=== PATIENT | female | born 1940 | race Caucasian/White ===

== ENCOUNTER → 2018-01-14 07:48 | Outpatient (CLI) | payer MEDICARE, OTHER, SELFPAY ==
[2018-01-14 08:17] LABS: Add Manual Diff / Slide Review NO; Basophils Percent Auto 0.8 % (0-2); Eosinophils Percent Auto 1.6 % (2-4); Hematocrit 39.3 % (36-46); Hemoglobin 13.6 g/dL (12.0-16.0); Mean Corpuscular HGB Conc 34.5 % (30-36); Mean Corpuscular Volume 92.6 fL (80-100); Monocytes Percent Auto 11.3 % (3-14); Neutrophils Absolute Auto 3800 /uL (3000-5900); Neutrophils Percent Auto 63.3 % (50-75); Platelet Count 242 X10^3/uL (150-400); Red Blood Cell Count 4.25 X10^6/uL (4.0-5.2); Red Cell Distribution Width 12.9 % (11.6-14.8); White Blood Cell Count 5.9 X10^3/uL (4.5-11.0)
[2018-01-14 08:18] LABS: Alanine Aminotransferase 26 IU/L (9-52); Albumin 4.2 g/dL (3.5-5.0); Albumin Globulin Ratio 1.3 (1.0-2.8); Alkaline Phosphatase 62 U/L (38-126); Aspartate Aminotransferase 26 IU/L (14-36); BUN Creatinine Ratio 31.3 (6-22); Bilirubin Total 0.5 mg/dL (0.2-1.3); Blood Urea Nitrogen 25 mg/dL (7-17); Calcium 9.2 mg/dL (8.4-10.2); Carbon Dioxide 30 mmol/L (22-32); Chloride 99 mmol/L (98-107); Estimated Glomerular Filt Rate > 60.0 mL/min (>60); Globulin 3.2 g/dL (1.7-4.1); Glucose 147 mg/dL (80-110); HEMOLYSIS 16 (0-50); Sodium 141 mmol/L (137-145); Total Protein 7.4 g/dL (6.3-8.2)
[2018-01-16 16:05] LABS: Cancer Antigen 27.29 22 U/mL (< 38)
== END ==
PROVIDERS: Family Provider Physician Assistant; PCP Physician Assistant; Visit Provider Nurse Practitioner Gerontology
DX: C50.912 Malignant neoplasm of unspecified site of left female breast (principal)
CPT/HCPCS: 36415; 80053; 85025; 86300

== ENCOUNTER 2018-07-08 07:10 | Day surgery (SDC) | payer MEDICARE, OTHER, SELFPAY ==
[2018-07-08 07:50] VITALS: BP 185/90; PULSE 85; RESP 14; TEMP 36.6; O2SAT 92; BMI 30.5
[2018-07-08] MEDS: PROPARACAINE 0.5% OPHTH SOL 2 DROPS EYE-OP (07:54)
[2018-07-08] MEDS: CATARACT EYE COMPOUND (10 DROPS/SYRINGE) 3 DROPS EYE-OP ×2 (07:56→08:08)
--- NOTE | 2018-07-08 09:07 | P.OP.PRE_ITS ---
Pre-operative Note Interval Note Changes: No
--- NOTE | 2018-07-08 09:07 | PM.PREOP ---
Pre-operative Note Interval Note Changes: No
--- NOTE | 2018-07-08 09:08 | P.OP_ITS ---
Operative Date/Time/Diagnoses Pre-op diagnosis: Nuclear Cataract Left eye Post-op diagnosis: same Procedure & Clinicians Surgeon: Alex Skaggs Anesthesia Type: MAC +/- and Sedation Operative Notes Procedure in detail: Patient brought to the operating suite. Tetracaine drops placed in the left eye. Patient was prepped and draped in sterile manner. Wire lid speculum was placed in the eye. Betadine drops were placed on the eye. This was irrigated. Lidocaine jelly was placed on the eye. A paracentesis port was created with a side-port blade. 0.1 mL 1% preservative free lidocaine was injected into the anterior chamber. The anterior chamber was deepened with viscoelastic. 2.6 mm keratome was used to create a temporal clear corneal incision. Cystotome and Utrata forceps were used to create continuous tear capsulorrhexis. Balanced salt solution was used to hydro dissect the nucleus. The phacoemulsification handpiece was inserted and the nucleus was removed using the stop and chop technique. The irrigation aspiration handpiece was inserted and the remaining cortex was removed. Anterior chamber was deepened with viscoelastic. An Mak ZCB00 intraocular lens with a power of 20.5 was injected into the capsular bag. Irrigation aspiration handpiece was inserted and the remaining viscoelastic was removed. Incision was hydrated with balanced salt solution and found to be leak free with pressure with Weck- Elizabeth sponges. 0.1 mL Vigamox injected anterior chamber. 0.3 mL Kenalog 10 mg was injected subconjunctivally. Lid speculum was removed. The patient left the operating room in excellent condition. Complications: none Condition: stable Disposition: same day surgery
[2018-07-08] MEDS: PHENYLEPHRINE/LIDOCAINE VIAL (OR) 0.2 ML EYE-OP (09:20)
[2018-07-08] MEDS: LIDOCAINE JELLY 2% 5 ML 1 APPLIC TOP (09:20)
[2018-07-08] MEDS: MOXIFLOXACIN OPHTH DROPS 3 ML BOTTLE 2 DROPS INJ (09:21)
[2018-07-08] MEDS: CHONDROIDTIN/SOD HYALURONATE 1.05 ML SYRINGE INTRAOCULA (09:22)
[2018-07-08] MEDS: TETRACAINE 0.5% OPHTH DROPS 15 ML 2 DROPS EYE-LEFT (09:22)
[2018-07-08] MEDS: TRIAMCINOLONE 50 MG/5 ML VIAL INJ (09:22)
[2018-07-08] MEDS: BALANCED SALT IRRIG SOLN NO.2 500 ML, EPINEPHrine 1 MG IRR (09:23)
== END 2018-07-08 09:43 | disposition home or self-care (01) ==
PROVIDERS: Family Provider Physician Assistant; PCP Physician Assistant; Visit Provider Ophthalmology
DX: H25.12 Age-related nuclear cataract, left eye (principal)
CPT/HCPCS: J0171; J2250; J3010; J3301

== ENCOUNTER → 2018-07-14 13:38 | Outpatient (CLI) | payer MEDICARE, OTHER, SELFPAY ==
[2018-07-14 15:12] LABS: Add Manual Diff / Slide Review NO; Basophils Percent Auto 0.5 % (0-2); Eosinophils Percent Auto 1.2 % (2-4); Hematocrit 41.1 % (36-46); Hemoglobin 13.8 g/dL (12.0-16.0); Lymphocytes Percent Auto 22.9 % (25-40); Mean Corpuscular HGB Conc 33.7 % (30-36); Mean Corpuscular Hemoglobin 31.8 PG (26-34); Mean Corpuscular Volume 94.4 fL (80-100); Monocytes Percent Auto 13.9 % (3-14); Neutrophils Absolute Auto 4100 /uL (3000-5900); Neutrophils Percent Auto 61.5 % (50-75); Platelet Count 278 X10^3/uL (150-400); Red Blood Cell Count 4.35 X10^6/uL (4.0-5.2); Red Cell Distribution Width 13.1 % (11.6-14.8); White Blood Cell Count 6.7 X10^3/uL (4.5-11.0)
[2018-07-14 15:17] LABS: Alanine Aminotransferase 26 IU/L (9-52); Albumin 4.5 g/dL (3.5-5.0); Albumin Globulin Ratio 1.3 (1.0-2.8); Alkaline Phosphatase 67 U/L (38-126); Aspartate Aminotransferase 26 IU/L (14-36); Bilirubin Total 0.3 mg/dL (0.2-1.3); Blood Urea Nitrogen 24 mg/dL (7-17); Calcium 9.1 mg/dL (8.4-10.2); Carbon Dioxide 34 mmol/L (22-32); Chloride 97 mmol/L (98-107); Estimated Glomerular Filt Rate > 60.0 mL/min (>60); Globulin 3.4 g/dL (1.7-4.1); Glucose 104 mg/dL (80-110); HEMOLYSIS < 15 (0-50); Potassium 4.4 mmol/L (3.4-5.1); Sodium 141 mmol/L (137-145); Total Protein 7.9 g/dL (6.3-8.2)
[2018-07-16 15:00] LABS: Cancer Antigen 27.29 23 U/mL (< 38)
== END ==
PROVIDERS: Visit Provider Nurse Practitioner Gerontology
DX: Z85.3 Personal history of malignant neoplasm of breast (principal)
CPT/HCPCS: 36415; 80053; 85025; 86300

== ENCOUNTER 2018-07-22 06:15 | Day surgery (SDC) | payer MEDICARE, OTHER, SELFPAY ==
[2018-07-22 07:09] VITALS: BMI 31.8
[2018-07-22] MEDS: PROPARACAINE 0.5% OPHTH SOL 2 DROPS EYE-OP (07:16)
[2018-07-22] MEDS: CATARACT EYE COMPOUND (10 DROPS/SYRINGE) 3 DROPS EYE-OP (07:20)
[2018-07-22 07:25] VITALS: BP 181/90; PULSE 79; RESP 18; TEMP 36.6; O2SAT 93; BMI 31.8
--- NOTE | 2018-07-22 07:41 | PM.PREOP ---
Pre-operative Note Interval Note Changes: No
--- NOTE | 2018-07-22 07:42 | P.OP.PRE_ITS ---
Pre-operative Note Interval Note Changes: No
--- NOTE | 2018-07-22 07:43 | P.OP_ITS ---
Operative Date/Time/Diagnoses Pre-op diagnosis: Nuclear cataract right eye Procedure & Clinicians Procedure: Cataract Surgery Same procedure as scheduled: Yes Surgeon: Alex Skaggs Anesthesia Type: MAC +/- and Sedation Operative Notes Procedure in detail: Patient brought to the operating suite. Tetracaine drops placed in the right eye. Patient was prepped and draped in sterile manner. Wire lid speculum was placed in the eye. Betadine drops were placed on the eye. This was irrigated. Lidocaine jelly was placed on the eye. A paracentesis port was created with a side-port blade. 0.1 mL 1% preservative free lidocaine was injected into the anterior chamber. The anterior chamber was deepened with viscoelastic. 2.6 mm keratome was used to create a temporal clear corneal incision. Cystotome and Utrata forceps were used to create continuous tear capsulorrhexis. Balanced salt solution was used to hydro dissect the nucleus. The phacoemulsification handpiece was inserted and the nucleus was removed using the stop and chop technique. The irrigation aspiration handpiece was inserted and the remaining cortex was removed. Anterior chamber was deepened with viscoelastic. An Mak ZCB00 intraocular lens with a power of 20.5 was injected into the capsular bag. Irrigation aspiration handpiece was inserted and the remaining viscoelastic was removed. Incision was hydrated with balanced salt solution and found to be leak free with pressure with Weck- Elizabeth sponges. 0.1 mL Vigamox injected anterior chamber. 0.3 mL Kenalog 10 mg was injected subconjunctivally. Lid speculum was removed. The patient left the operating room in excellent condition. Complications: none Condition: stable Disposition: same day surgery
[2018-07-22] MEDS: PHENYLEPHRINE/LIDOCAINE VIAL (OR) 0.2 ML EYE-OP (07:58)
[2018-07-22] MEDS: MOXIFLOXACIN OPHTH DROPS 3 ML BOTTLE 2 DROPS INJ (07:59)
[2018-07-22] MEDS: TRIAMCINOLONE 50 MG/5 ML VIAL INJ (07:59)
[2018-07-22] MEDS: CHONDROIDTIN/SOD HYALURONATE 1.05 ML SYRINGE INTRAOCULA (08:00)
[2018-07-22] MEDS: BALANCED SALT IRRIG SOLN NO.2 500 ML, EPINEPHrine 1 MG IRR (08:00)
[2018-07-22] MEDS: LIDOCAINE JELLY 2% 5 ML 1 APPLIC TOP (08:01)
[2018-07-22] MEDS: TETRACAINE 0.5% OPHTH DROPS 15 ML 2 DROPS EYE-RIGHT (08:02)
[2018-07-22 08:11] VITALS: BP 139/76; PULSE 80; RESP 15; TEMP 36.3; O2SAT 93
== END 2018-07-22 08:26 ==
LOC: OR 06:16
PROVIDERS: Family Provider Physician Assistant; PCP Physician Assistant; Visit Provider Ophthalmology
DX: H25.11 Age-related nuclear cataract, right eye (principal)
CPT/HCPCS: J0171; J2250; J3010; J3301

== ENCOUNTER → 2019-09-05 07:47 | Outpatient (CLI) | payer MEDICARE, OTHER, SELFPAY ==
--- NOTE | 2019-09-05 07:50 | DI.MG.S_ITS ---
BILATERAL DIGITAL SCREENING MAMMOGRAM 3D/2D WITH CAD: 09/05/2019 CLINICAL: Routine screening. Personal history of left breast cancer. Family history of breast cancer. Comparison is made to exams dated: 09/16/2017 mammogram, 10/10/2015 mammogram, and 10/08/2014 mammogram - [facility]. The tissue of both breasts is heterogeneously dense. This may lower the sensitivity of mammography. Current study was also evaluated with a Computer Aided Detection (CAD) system. There is an irregular equal density asymmetry with an indistinct margin in the left breast middle depth superior region seen on the mediolateral oblique view only. No other significant masses, calcifications, or other findings are seen in either breast. IMPRESSION: INCOMPLETE: NEEDS ADDITIONAL IMAGING EVALUATION The irregular equal density asymmetry in the left breast is indeterminate. Mediolateral and spot compression views as well as additional views with possible ultrasound are recommended. This exam was interpreted at Station ID: [id number]. NOTE: For mammograms, a report in lay terms will be sent to the patient. Approximately 15% of breast malignancies will not be visualized mammographically. In the management of a palpable breast mass, a negative mammogram must not discourage biopsy of a clinically suspicious lesion. Electronically Signed By: Priyank mtz/angeli:09/07/2019 08:14:57 copy to: PHYLICIA PEÑALOZA letter sent: Additional Imaging Needed ACR BI-RADS Category 0: Incomplete 3340F
== END ==
DX: Z12.31 Encounter for screening mammogram for malignant neoplasm of breast (principal); Z85.3 Personal history of malignant neoplasm of breast; Z80.3 Family history of malignant neoplasm of breast
CPT/HCPCS: 77063; 77067

== ENCOUNTER → 2019-09-25 08:03 | Outpatient (CLI) | payer MEDICARE, OTHER, SELFPAY ==
--- NOTE | 2019-09-25 08:05 | DI.MG.S_ITS ---
UNILATERAL LEFT DIGITAL DIAGNOSTIC MAMMOGRAM 3D/2D WITH ADDITIONAL VIEWS: 09/25/2019 CLINICAL: Additional evaluation requested from prior study. Comparison is made to exams dated: 09/05/2019 mammogram and 09/16/2017 mammogram - [facility]. The tissue of left breast is heterogeneously dense. This may lower the sensitivity of mammography. The left breast has stable post-operative findings. The benign equal density asymmetry in the left breast anterior depth superior region seen on the mediolateral oblique view only is no longer seen. This is consistent with summation artifact. No other significant masses or calcifications are seen in the breast. IMPRESSION: The previously described asymmetry disperses with additional views and is consistent with summation artifact. There is no mammographic evidence of malignancy. A 1 year screening mammogram is recommended. This exam was interpreted at Station ID: [id number]. NOTE: For mammograms, a report in lay terms will be sent to the patient. Approximately 15% of breast malignancies will not be visualized mammographically. In the management of a palpable breast mass, a negative mammogram must not discourage biopsy of a clinically suspicious lesion. Electronically Signed By: Bigg Dan M.D. at/:09/25/2019 08:42:23 copy to: PHYLICIA PEÑALOZA letter sent: Normal Exam ACR BI-RADS Category 2: Benign Finding(s) 3342F
== END ==
DX: R92.8 Other abnormal and inconclusive findings on diagnostic imaging of breast (principal); Z85.3 Personal history of malignant neoplasm of breast
CPT/HCPCS: 77065; G0279

== ENCOUNTER → 2020-05-20 12:51 | Outpatient (CLI) | payer MEDICARE, OTHER, SELFPAY ==
--- NOTE | 2020-05-20 12:55 | DI.CT.S_ITS ---
PROCEDURE: CT CHEST ABD PEL W CON INDICATIONS: Increasing bilateral lower extremity pain, history breast ca TECHNIQUE: After the administration of oral and intravenous contrast, 5 mm thick sections acquired from the lung apices to the symphysis. 5 mm coronal and sagittal reformats were performed, with additional 7 mm coronal MIP reformats through the lungs. For radiation dose reduction, the following was used: automated exposure control, adjustment of mA and/or kV according to patient size. COMPARISON: [facility], CT, CHEST ABDOMEN WITH CONTRAST, 06/02/2009, 11:34. [facility], CT, CHEST ABDOMEN PELVIS WITH CONTRAST, 02/04/2009, 9:46. FINDINGS: Image quality: Excellent. CHEST: Lungs and pleura: No acute airspace opacities. No pleural effusions or pneumothorax. Central and peripheral airways appear patent and normal in caliber. Mediastinum: Heart size is normal. No pericardial effusion. No mediastinal or hilar adenopathy by size criteria. Thoracic aorta and central pulmonary arteries are normal in size. Scattered atheromatous calcifications are present within the aortic arch. Esophagus is normal in caliber. There is a large hiatal hernia. There is marked elevation of the right hemidiaphragm, unchanged from the study dated June 02, 2009. Chest wall: Multiple surgical clips are present in the left axilla. No axillary or supraclavicular adenopathy by size criteria. Thyroid gland is unremarkable . ABDOMEN: Solid organs: Liver is normal in size and enhancement. Gallbladder is [id number] . Biliary system is non dilated. Pancreas enhances normally. Spleen is normal in size and enhancement. No adrenal nodules. Kidneys demonstrate normal size and enhancement, without hydronephrosis. Peritoneum and bowel: Bowel loops demonstrate normal wall thickness and caliber. The appendix is not visualized; however there is no discrete right lower quadrant fluid or fat stranding to suggest acute appendicitis. There are extensive sigmoid diverticula. No evidence for diverticulitis. No free fluid or air. Nodes and vessels: No retroperitoneal or mesenteric adenopathy by size criteria. Aorta and inferior vena cava are normal in size. There are scattered atheromatous calcifications throughout the aorta and iliac arteries bilaterally. Miscellaneous: No ventral hernias. PELVIS: Genitourinary: Bladder wall thickness is normal. Miscellaneous: No inguinal hernias or adenopathy. Bones: No suspicious bony lesions. No vertebral body compression fractures. IMPRESSION: 1. No acute intra-abdominal findings. The appendix is not visualized; however there are no ancillary findings to suggest acute appendicitis. 2. Extensive sigmoid colon diverticulosis. No findings to suggest acute diverticulitis. Dictated by: Alyssa Hayes M.D. on 05/20/2020 at 15:19 Approved by: Alyssa Hayes M.D. on 05/20/2020 at 15:26
--- NOTE | 2020-05-20 12:55 | DI.NM.S_ITS ---
PROCEDURE: HI BONE SCAN WHOLE BODY RADIOPHARMACEUTICAL: 22.0 mCi Tc-99m MDP IV. INDICATIONS: Increasing bilateral lower extremity pain, history breast ca TECHNIQUE: Delayed whole-body scintigrams were obtained approximately 3-4 hours after intravenous injection of radiotracer. Anterior and posterior views were acquired from vertex to feet. COMPARISON: [facility], [place], BONE SCAN WHOLE BODY, 02/09/2009, 10:32. FINDINGS: Right knee and hindfoot tracer activity which is likely arthritic. No suspicious tracer activity is seen. There is bilateral sternoclavicular tracer activity which is likely degenerative given the unchanged appearance since 2008. IMPRESSION: No suspicious tracer activity Dictated by: Xavier Cash M.D. on 05/20/2020 at 16:50 Approved by: Xavier Cash M.D. on 05/20/2020 at 16:54
== END ==
PROVIDERS: Referring Provider Internal Medicine; Visit Provider Internal Medicine
DX: M79.605 Pain in left leg (principal); M79.604 Pain in right leg; K57.30 Diverticulosis of large intestine without perforation or abscess without bleeding; Z85.3 Personal history of malignant neoplasm of breast
CPT/HCPCS: 71260; 74177; 78306; A9503; Q9967

== ENCOUNTER → 2020-05-25 13:20 | Oncology outpatient (ONC) | payer MEDICARE, OTHER, SELFPAY ==
--- NOTE | 2018-01-24 08:14 | P.PNONC_ITS ---
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 She has subsequently showed no evidence recurrence of disease. Todays exam was unremarkable, no clinical signs or symptoms of disease recurrence. Additionally CBC and CMP also unremarkable. CA 27-29 is well within normal limits at 22. Mammogram September 16, 2017 no evidence of malignancy. Return to clinic in 6 months time for provider visit, CBC, CMP, CA 27-29. 01/24/18 09:07 - Time Spent with Patient 35 mins PN -Subjective Interval history: Genesis is an 78-year-old female who is being seen in the clinic January 24, 2018 for a diagnosis of stage IV left-sided breast cancer, T2, N3, ELLIE-[address] avid mediastinal node, left supraclavicular and possible right supraclavicular node. This was ER CT negative, HER 2 +. Genesis was treated with chemotherapy with Herceptin and radiation. PET-CT was negative April 2010, CT was negative August 2010. Patient decided at that point to hold off on future CT scanning. Patient offers no new complaints on exam today. 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 She has no plans to retire. he son and ckon have been helping with the business since her last year. Annual bilateral screening mammogram was in September of this year, no evidence of malignancy with recommendation to repeat in 1 year. Overall Genesis is feeling fine. She does continue to have diffuse chronic pain , no new pain. No headaches. No change in activity tolerance. No change with appetite, weight is stable. No change with bladder or bowel habits. Past Medical History The patient's past medical history is significant for: Previously diagnosed with limited stage IV left-sided breast cancer, T2 N3 CN1 with a PET CT FDG-avid mediastinal node, left supraclavicular and possible right supraclavicular node. 2. Treated with chemotherapy, herceptin and radiation. PET CT was negative in 04/2010, and CT was negative in 08/2010. She decided to hold off on future CT scanning. 3. Finished a year of Herceptin 05/18/2010. 4. ER/CT negative. Did not receive hormone blockade. 5. CT 03/2011 showing no adenopathy in the chest or abdomen. 6. Sciatica and left shoulder and neck pain and back pain. She requires chronic pain medications. She aslo sees an accupuncture and chiropractor. Results - Imaging Additional studies: Procedures Endoscopic polypectomy of large intestine (11/26/14) Incision with removal of foreign body or device from skin and subcutaneous tissue (09/21/10) Home Medications and Allergies Home Medications Medication Instructions Recorded Confirmed Type hydrocodone-acetaminophen 1 - 2 tab PO Q6HP PRN #90 tab 01/24/18 Rx Allergies Allergy/AdvReac Type Severity Reaction Status Date / Time ibuprofen [IBUPROFEN] Allergy Mild (ALEVE) Unverified 11/20/17 12:53 SNEEZE, COUGH, ITCHY THROAT Exam - Constitutional positive no acute distress, positive obese - Routine HEENT Exam Head: Present: normocephalic Eye: Present: EOMI, PERRL, normal accommodation, conjunctivae pink. Absent: conjunctival icterus, scleral injection ENT: Present: mucous membranes moist - Routine Neck Exam Present: supple. Absent: lymphadenopathy - Routine Chest/Breast/Axilla Exam Chest wall exam standard: Absent: tenderness, mass Breast: Absent: tenderness, induration, mass Axillae: Absent: lymphadenopathy, mass, tenderness Comments: dense breast tissue - Routine Respiratory Exam Present: Clear to auscultation bilaterally. Absent: rales, rhonchi, wheezes - Routine Cardiovascular Exam Present: RRR, S1, S2. Absent: murmur, gallop, rubs, JVD - Routine Abdominal Exam Present: soft, normoactive bowel sounds. Absent: tenderness, distended, organomegaly - Routine Extremities Exam Absent: edema, calf tenderness - Routine Skin Exam Present: intact. Absent: petechiae, rash - Routine Neurological Exam Present: alert, oriented X3 - Routine Psychiatric Exam Present: normal affect
[2018-01-24 08:51] VITALS: BP 138/90; PULSE 78; RESP 18; TEMP 36.3; O2SAT 94
--- NOTE | 2018-04-10 15:47 | PC.NURSE ---
Pt is requesting a refill on her hydrocodone .
--- NOTE | 2018-07-21 08:21 | ONC.APRN.PN ---
PN -Subjective Interval history: Genesis is an 78-year-old female who is being seen in the clinic 07/21/2018 for a diagnosis of stage IV left-sided breast cancer, T2, N3, ELLIE-[address] avid mediastinal node, left supraclavicular and possible right supraclavicular node. This was ER ID negative, HER 2 +. Genesis was treated with chemotherapy with Herceptin and radiation. PET-CT was negative April 2010, CT was negative August 2010. Patient decided at that point to hold off on future CT scanning. Patient offers no new complaints on exam today. 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 She has no plans to retire. She and her son and shelly have been helping with the business since her a few years ago. She still has chronic joint pain for which she will take a vicodin at night to get comfortable so I can sleep. No new pain, no new lumps or bumps. Annual bilateral screening mammogram was in September of this year, no evidence of malignancy with recommendation to repeat in 1 year. Overall Genesis is feeling fine. She does continue to have diffuse chronic pain, no new pain. No headaches. No change in activity tolerance. No change with appetite, weight is stable. No change with bladder or bowel habits. She does not see a primary care provider. It is noted today her blood pressure is up a bit also she has gained approximately 10 lb. Past Medical History The patient's past medical history is significant for: Previously diagnosed with limited stage IV left-sided breast cancer, T2 N3 CN1 with a PET CT FDG-avid mediastinal node, left supraclavicular and possible right supraclavicular node. 2. Treated with chemotherapy, herceptin and radiation. PET CT was negative in 04/2010, and CT was negative in 08/2010. She decided to hold off on future CT scanning. 3. Finished a year of Herceptin 05/18/2010. 4. ER/ID negative. Did not receive hormone blockade. 5. CT 03/2011 showing no adenopathy in the chest or abdomen. 6. Sciatica and left shoulder and neck pain and back pain. She requires chronic pain medications. She aslo sees an accupuncture and chiropractor. Home Medications and Allergies Home Medications Medication Instructions Recorded Confirmed Type hydrocodone-acetaminophen 1 tab PO Q4-6H PRN #90 tab 07/21/18 Rx Allergies Allergy/AdvReac Type Severity Reaction Status Date / Time ibuprofen [IBUPROFEN] Allergy Mild (ALEVE) Unverified 11/20/17 12:53 SNEEZE, COUGH, ITCHY THROAT Exam - Constitutional positive no acute distress, positive obese - Routine HEENT Exam Eye: Present: conjunctivae pink. Absent: conjunctival icterus, scleral injection ENT: Present: mucous membranes moist, oropharynx clear - Routine Neck Exam Present: supple. Absent: lymphadenopathy - Routine Chest/Breast/Axilla Exam Chest wall exam standard: Absent: tenderness, mass Breast: Absent: tenderness, induration, mass Axillae: Absent: lymphadenopathy, mass, tenderness - Routine Respiratory Exam Present: Clear to auscultation bilaterally, decreased breath sounds. Absent: accessory muscle use, prolonged expiratory phase, rales, respiratory distress, rhonchi, wheezes, distant breath sounds - Routine Cardiovascular Exam Present: RRR, S1, S2. Absent: murmur, gallop, rubs, JVD - Routine Abdominal Exam Present: soft, normoactive bowel sounds. Absent: tenderness, distended, rebound, organomegaly, mass Comments: obese abdomen - Routine Extremities Exam Absent: edema, calf tenderness - Routine Skin Exam Present: intact, normal turgor. Absent: rash - Routine Neurological Exam Present: alert, oriented X3 - Routine Psychiatric Exam Present: normal affect Results - Imaging Additional studies: Procedures Endoscopic polypectomy of large intestine (11/26/14) Assessment and Plan (1) History of malignant neoplasm of breast Onset Date: 03/21/11 Current visit: No Status: None Genesis is an 78-year-old female who is being seen in the clinic 07/21/2018 for a diagnosis of stage IV left-sided breast cancer, T2, N3, ELLIE-[address] avid mediastinal node, left supraclavicular and possible right supraclavicular node. This was ER ID negative, HER 2 +. Genesis was treated with chemotherapy with Herceptin and radiation. PET-CT was negative April 2010, CT was negative August 2010. Patient decided at that point to hold off on future CT scanning. She will be due for her annual bilateral screening mammogram in September of 2018. Reassuringly on exam today there are no clinical signs or symptoms of disease recurrence/progression. Additionally, CBC, CMP, CA-27-29 remain unremarkable. It is noted the patient's blood pressure is a bit elevated today additionally she has gained about 10 lb. She does not have a primary care provider, discussed with the patient checking her blood pressure at home keeping a record of it and establishing with primary care. I am happy to refill this patient's prescription for Vicodin 5/325. She does have diffuse chronic pain. She remains quite active. She reports significant relief with 1 Vicodin. Return to clinic in 6 months time for provider visit CBC CMP CA 27-29. - Time Spent with Patient 25 mins
[2018-07-21 08:44] VITALS: BP 154/84; PULSE 76; RESP 18; TEMP 36.4; O2SAT 95
--- NOTE | 2018-09-11 10:14 | ONC.SCHED ---
Pt's sister in law came in to pickling grader prescription. There was nothing on the envelope stating she could pick it up so I asked for her ID and called the patient to confirm this was ok. Genesis gave her permission.
--- NOTE | 2018-12-29 10:24 | PC.NURSE ---
Phoned pt to let her know her hard copy of RX is at front desk clerk in sealed envelope with her name on it and ready to be picked up, pt verbalized understanding.
[2019-01-12 09:05] LABS: Add Manual Diff / Slide Review NO; Basophils Absolute Auto 0 /uL (0-100); Basophils Percent Auto 0.7 % (0-2); Eosinophils Absolute Auto 100 /uL (0-450); Eosinophils Percent Auto 1.9 % (2-4); Hematocrit 41.8 % (36-46); Hemoglobin 14.1 g/dL (12.0-16.0); Lymphocytes Absolute Auto 1900 /uL (1100-4500); Lymphocytes Percent Auto 26.1 % (25-40); Mean Corpuscular HGB Conc 33.7 % (30-36); Mean Corpuscular Hemoglobin 31.2 PG (26-34); Mean Corpuscular Volume 92.6 fL (80-100); Monocytes Absolute Auto 900 /uL (0-900); Monocytes Percent Auto 12.3 % (3-14); Neutrophils Absolute Auto 4200 /uL (1500-7000); Platelet Count 259 X10^3/uL (150-400); Red Blood Cell Count 4.51 X10^6/uL (4.0-5.2); Red Cell Distribution Width 14.5 % (11.6-14.8); White Blood Cell Count 7.2 X10^3/uL (4.5-11.0)
[2019-01-12 09:39] LABS: Alanine Aminotransferase 15 IU/L (9-52); Albumin 4.4 g/dL (3.5-5.0); Albumin Globulin Ratio 1.3 (1.0-2.8); Alkaline Phosphatase 70 U/L (38-126); Aspartate Aminotransferase 25 IU/L (14-36); BUN Creatinine Ratio 21.1 (6-22); Bilirubin Total 0.6 mg/dL (0.2-1.3); Blood Urea Nitrogen 19 mg/dL (7-17); Calcium 9.5 mg/dL (8.4-10.2); Carbon Dioxide 32 mmol/L (22-32); Chloride 97 mmol/L (98-107); Estimated Glomerular Filt Rate > 60.0 mL/min (>60); Globulin 3.5 g/dL (1.7-4.1); Glucose 107 mg/dL (80-110); HEMOLYSIS < 15 (0-50); Potassium 4.4 mmol/L (3.4-5.1); Sodium 139 mmol/L (137-145); Total Protein 7.9 g/dL (6.3-8.2)
[2019-01-15 10:11] LABS: Cancer Antigen 27.29 23 U/mL (< 38)
[2019-01-19 11:36] VITALS: BP 142/78; PULSE 71; RESP 18; TEMP 36.8; O2SAT 96
--- NOTE | 2019-01-19 11:44 | ONC.PN ---
PN -Subjective Interval history: Diagnosis: Breast cancer, T2 N3 M1, ERPR negative, her 2 positive Previous treatment: 1. Surgical resection in 2008 2. Adjuvant chemotherapy along with Herceptin for a year finishing in May 2010. PET-CT was negative at the end of treatment. 3. Radiation therapy Interval history: Genesis is an 78-year-old female who is being seen in the clinic 07/21/2018 for a diagnosis of stage IV left-sided breast cancer, T2, N3, M-[address] avid mediastinal node, left supraclavicular and possible right supraclavicular node. This was ER DE negative, HER 2 +. Genesis was treated with chemotherapy with Herceptin and radiation. PET-CT was negative April 2010, CT was negative August 2010. Patient decided at that point to hold off on future CT scanning. Since her last visit here, she has been feeling generally well and has no specific complaints. She has not noticed any changes in the breast. No adenopathy. No shortness of breath or cough. No GI complaints. She does have a diffuse pain that has been present since the time of her chemotherapy. She uses occasional Vicodin, 1 or 2 tablets daily. She is not taking any other medications. She continues to work full-time. She denies any other changes in her health. Past Medical History The patient's past medical history is significant for: Previously diagnosed with limited stage IV left-sided breast cancer, T2 N3 CN1 with a PET CT FDG-avid mediastinal node, left supraclavicular and possible right supraclavicular node. 2. Treated with chemotherapy, herceptin and radiation. PET CT was negative in 04/2010, and CT was negative in 08/2010. She decided to hold off on future CT scanning. 3. Finished a year of Herceptin 05/18/2010. 4. ER/DE negative. Did not receive hormone blockade. 5. CT 03/2011 showing no adenopathy in the chest or abdomen. 6. Sciatica and left shoulder and neck pain and back pain. She requires chronic pain medications. She aslo sees an accupuncture and chiropractor. Her only medication is hydrocodone. Home Medications and Allergies Home Medications Medication Instructions Recorded Confirmed Type hydrocodone-acetaminophen 1 tab PO Q4-6H PRN #90 tab 01/19/19 Rx Allergies Allergy/AdvReac Type Severity Reaction Status Date / Time ibuprofen [IBUPROFEN] Allergy Mild (ALEVE) Unverified 11/20/17 12:53 SNEEZE, COUGH, ITCHY THROAT Exam Vital signs: Vital Signs Temp Pulse Resp BP Pulse Ox 01/19/19 11:36 98.2 F 71 18 142/78 H 96 Intake and Output 01/18/19 01/19/19 01/19/19 23:59 07:59 15:59 Other: Weight 96.5 kg 94.9 kg Patient Weight 01/19/19 23:59 Weight 94.9 kg - Constitutional positive no acute distress, positive obese - Routine HEENT Exam Head: Present: normocephalic, atraumatic Eye: Present: EOMI, PERRL. Absent: conjunctival icterus, scleral injection ENT: Present: mucous membranes moist, oropharynx clear - Routine Neck Exam Present: supple. Absent: lymphadenopathy, thyromegaly - Routine Chest/Breast/Axilla Exam Chest wall exam standard: Absent: tenderness Axillae: Absent: lymphadenopathy Comments: She has a well-healed lumpectomy incision on the lower left breast. There is no nodularity or masses. No masses in the right breast. No axillary adenopathy on either side. - Routine Respiratory Exam Present: Clear to auscultation bilaterally. Absent: rales, wheezes - Routine Cardiovascular Exam Present: RRR, S1, S2. Absent: murmur - Routine Abdominal Exam Present: soft, normoactive bowel sounds. Absent: tenderness, organomegaly, mass - Routine Extremities Exam Absent: cyanosis, clubbing, edema - Routine Back/Spine Exam Back/Spine: Absent: paraspinal tenderness, vertebral tenderness - Routine Skin Exam Present: intact. Absent: petechiae, rash - Routine Neurological Exam Present: alert, oriented X3 - Routine Psychiatric Exam Present: normal affect, normal thought process Results - Labs Laboratory Last Values WBC 7.2 X10^3/uL (4.5-11.0) 01/12/19 06:54 RBC 4.51 X10^6/uL (4.0-5.2) 01/12/19 06:54 Hgb 14.1 g/dL (12.0-16.0) 01/12/19 06:54 Hct 41.8 % (36-46) 01/12/19 06:54 MCV 92.6 fL (80-100) 01/12/19 06:54 MCH 31.2 PG (26-34) 01/12/19 06:54 MCHC 33.7 % (30-36) 01/12/19 06:54 RDW 14.5 % (11.6-14.8) 01/12/19 06:54 Plt Count 259 X10^3/uL (150-400) 01/12/19 06:54 Neut % (Auto) 59.0 % (50-75) 01/12/19 06:54 Lymph % (Auto) 26.1 % (25-40) 01/12/19 06:54 [place] % (Auto) 12.3 % (3-14) 01/12/19 06:54 Eos % (Auto) 1.9 % (2-4) L 01/12/19 06:54 Baso % (Auto) 0.7 % (0-2) 01/12/19 06:54 Neut # (Auto) 4200 /uL (0112-7109) 01/12/19 06:54 Lymph # (Auto) 1900 /uL (1512-0322) 01/12/19 06:54 [place] # (Auto) 900 /uL (0-900) 01/12/19 06:54 Eos # (Auto) 100 /uL (0-450) 01/12/19 06:54 Baso # (Auto) 0 /uL (0-100) 01/12/19 06:54 Sodium 139 mmol/L (137-145) 01/12/19 06:54 Potassium 4.4 mmol/L (3.4-5.1) 01/12/19 06:54 Chloride 97 mmol/L (98-107) L 01/12/19 06:54 Carbon Dioxide 32 mmol/L (22-32) 01/12/19 06:54 BUN 19 mg/dL (7-17) H 01/12/19 06:54 Creatinine 0.90 mg/dL (0.52-1.04) 01/12/19 06:54 Estimated GFR > 60.0 mL/min (>60) 01/12/19 06:54 BUN/Creatinine Ratio 21.1 (6-22) 01/12/19 06:54 Glucose 107 mg/dL (80-110) 01/12/19 06:54 Calcium 9.5 mg/dL (8.4-10.2) 01/12/19 06:54 Total Bilirubin 0.6 mg/dL (0.2-1.3) 01/12/19 06:54 AST 25 IU/L (14-36) 01/12/19 06:54 ALT 15 IU/L (9-52) 01/12/19 06:54 Alkaline Phosphatase 70 U/L (38-126) 01/12/19 06:54 Total Protein 7.9 g/dL (6.3-8.2) 01/12/19 06:54 Albumin 4.4 g/dL (3.5-5.0) 01/12/19 06:54 Globulin 3.5 g/dL (1.7-4.1) 01/12/19 06:54 Albumin/Globulin Ratio 1.3 (1.0-2.8) 01/12/19 06:54 CA 27-29 23 U/mL (< 38) 01/12/19 06:54 - Imaging Additional studies: Procedures Endoscopic polypectomy of large intestine (11/26/14) Assessment and Plan (1) History of malignant neoplasm of breast Onset Date: 03/21/11 Current visit: No Status: Chronic Genesis is an 78-year-old female who is now about 10 years out from locally advanced her 2 positive breast cancer. She has no evidence of disease and is doing well. She will return to clinic in about 6 months for follow-up. If she is still doing well at that time, we will switch to annual follow-up. She will be due for a mammogram then.
[2019-07-21 11:23] VITALS: BP 167/79; PULSE 83; RESP 16; TEMP 36.7; O2SAT 89
--- NOTE | 2019-07-21 11:37 | P.PNONC_ITS ---
PN -Subjective Interval history: Diagnosis: Breast cancer, T2 N3 M1, ERPR negative, her 2 positive Previous treatment: 1. Surgical resection in 2008 2. Adjuvant chemotherapy along with Herceptin for a year finishing in May 2010. PET-CT was negative at the end of treatment. 3. Radiation therapy Interval history: Genesis is an 79-year-old female who is being seen in the clinic 07/21/2018 for a diagnosis of stage IV left-sided breast cancer, T2, N3, M-[address] avid mediastinal node, left supraclavicular and possible right supraclavicular node. This was ER [place] negative, HER 2 +. Genesis was treated with chemotherapy with Herceptin and radiation. PET-CT was negative April 2010, CT was negative August 2010. Patient decided at that point to hold off on future CT scanning. Since her last visit here, she has been feeling generally well and has no specific complaints. She has not noticed any changes in the breast. No adenopathy. No shortness of breath or cough. No GI complaints. She does have a diffuse pain that has been present since the time of her chemotherapy. She uses occasional Vicodin, 1 or 2 tablets daily. She is not taking any other medications. She continues to work full-time. She denies any other changes in her health. Past Medical History The patient's past medical history is significant for: Previously diagnosed with limited stage IV left-sided breast cancer, T2 N3 CN1 with a PET CT FDG-avid mediastinal node, left supraclavicular and possible right supraclavicular node. 2. Treated with chemotherapy, herceptin and radiation. PET CT was negative in 04/2010, and CT was negative in 08/2010. She decided to hold off on future CT scanning. 3. Finished a year of Herceptin 05/18/2010. 4. ER/[place] negative. Did not receive hormone blockade. 5. CT 03/2011 showing no adenopathy in the chest or abdomen. 6. Sciatica and left shoulder and neck pain and back pain. She requires chronic pain medications. She aslo sees an accupuncture and chiropractor. Her only medication is hydrocodone. Home Medications and Allergies Home Medications Medication Instructions Recorded Confirmed Type hydrocodone-acetaminophen 1 tab PO Q4-6H PRN #90 tab 07/21/19 Rx Allergies Allergy/AdvReac Type Severity Reaction Status Date / Time ibuprofen [IBUPROFEN] Allergy Mild (ALEVE) Unverified 11/20/17 12:53 SNEEZE, COUGH, ITCHY THROAT Exam Vital signs: Vital Signs Temp Pulse Resp BP Pulse Ox 07/21/19 11:23 98.1 F 83 16 167/79 H 89 L Intake and Output 07/20/19 07/21/19 07/21/19 23:59 07:59 15:59 Other: Weight 94.5 kg Patient Weight 07/21/19 23:59 Weight 94.5 kg - Constitutional positive no acute distress, positive obese - Routine HEENT Exam Head: Present: normocephalic, atraumatic Eye: Present: EOMI, PERRL. Absent: conjunctival icterus, scleral injection ENT: Present: mucous membranes moist, oropharynx clear - Routine Neck Exam Present: supple. Absent: lymphadenopathy, thyromegaly - Routine Chest/Breast/Axilla Exam Comments: Breast exam shows a well-healed incision on the inferior left breast. There is no nodularity or masses. No masses in the right breast. No axillary adenopathy on either side. - Routine Respiratory Exam Present: Clear to auscultation bilaterally. Absent: rales, wheezes - Routine Cardiovascular Exam Present: RRR, S1, S2. Absent: murmur - Routine Abdominal Exam Present: soft, normoactive bowel sounds. Absent: tenderness, organomegaly, mass - Routine Extremities Exam Absent: cyanosis, clubbing, edema - Routine Back/Spine Exam Back/Spine: Absent: vertebral tenderness - Routine Skin Exam Present: intact. Absent: petechiae, rash - Routine Neurological Exam Present: alert, oriented X3 - Routine Psychiatric Exam Present: normal affect, normal thought process Results - Labs Laboratory Last Values WBC 7.2 X10^3/uL (4.5-11.0) 01/12/19 06:54 RBC 4.51 X10^6/uL (4.0-5.2) 01/12/19 06:54 Hgb 14.1 g/dL (12.0-16.0) 01/12/19 06:54 Hct 41.8 % (36-46) 01/12/19 06:54 MCV 92.6 fL (80-100) 01/12/19 06:54 MCH 31.2 PG (26-34) 01/12/19 06:54 MCHC 33.7 % (30-36) 01/12/19 06:54 RDW 14.5 % (11.6-14.8) 01/12/19 06:54 Plt Count 259 X10^3/uL (150-400) 01/12/19 06:54 Neut % (Auto) 59.0 % (50-75) 01/12/19 06:54 Lymph % (Auto) 26.1 % (25-40) 01/12/19 06:54 [place] % (Auto) 12.3 % (3-14) 01/12/19 06:54 Eos % (Auto) 1.9 % (2-4) L 01/12/19 06:54 Baso % (Auto) 0.7 % (0-2) 01/12/19 06:54 Neut # (Auto) 4200 /uL (5321-3419) 01/12/19 06:54 Lymph # (Auto) 1900 /uL (4854-4384) 01/12/19 06:54 [place] # (Auto) 900 /uL (0-900) 01/12/19 06:54 Eos # (Auto) 100 /uL (0-450) 01/12/19 06:54 Baso # (Auto) 0 /uL (0-100) 01/12/19 06:54 Sodium 139 mmol/L (137-145) 01/12/19 06:54 Potassium 4.4 mmol/L (3.4-5.1) 01/12/19 06:54 Chloride 97 mmol/L (98-107) L 01/12/19 06:54 Carbon Dioxide 32 mmol/L (22-32) 01/12/19 06:54 BUN 19 mg/dL (7-17) H 01/12/19 06:54 Creatinine 0.90 mg/dL (0.52-1.04) 01/12/19 06:54 Estimated GFR > 60.0 mL/min (>60) 01/12/19 06:54 BUN/Creatinine Ratio 21.1 (6-22) 01/12/19 06:54 Glucose 107 mg/dL (80-110) 01/12/19 06:54 Calcium 9.5 mg/dL (8.4-10.2) 01/12/19 06:54 Total Bilirubin 0.6 mg/dL (0.2-1.3) 01/12/19 06:54 AST 25 IU/L (14-36) 01/12/19 06:54 ALT 15 IU/L (9-52) 01/12/19 06:54 Alkaline Phosphatase 70 U/L (38-126) 01/12/19 06:54 Total Protein 7.9 g/dL (6.3-8.2) 01/12/19 06:54 Albumin 4.4 g/dL (3.5-5.0) 01/12/19 06:54 Globulin 3.5 g/dL (1.7-4.1) 01/12/19 06:54 Albumin/Globulin Ratio 1.3 (1.0-2.8) 01/12/19 06:54 CA 27-29 23 U/mL (< 38) 01/12/19 06:54 - Imaging Additional studies: Procedures Endoscopic polypectomy of large intestine (11/26/14) Assessment and Plan (1) History of malignant neoplasm of breast Onset Date: 03/21/11 Current visit: No Status: Chronic Genesis is an 78-year-old female who is now about 10 years out from her 2 positive breast cancer. She has no evidence of disease and is doing well. She will return to clinic in about 1 year for follow-up. She will get her mammogram later this week. She will be due for another 1 in a year.
--- NOTE | 2019-11-26 13:58 | PC.NURSE ---
VICODIN RX READY FOR PATIENT TO CONCESSION CASHIER - SHE WAS INFORMED PER TELEPHONE AND VOICED UNDERSTANDING.
[2020-05-18 08:34] VITALS: BP 136/77; PULSE 80; RESP 20; TEMP 36.2; O2SAT 95
--- NOTE | 2020-05-18 09:13 | ONC.PN ---
PN -Subjective Interval history: Diagnosis: Breast cancer, T2 N3 M1, ERPR negative, her 2 positive Ms. britton presents today for follow-up of breast cancer. She is now 80 years old. In 2008 she had resection of a T2 N3a M1 hormone receptor negative HER2 positive left breast cancer. PET scan was positive in mediastinal, left supraclavicular and possibly right supraclavicular lymph nodes. She was treated with ACTH and completed a year of Herceptin in May of 2010. She had post chemotherapy radiation. Subsequent imaging studies have been negative. She was last in to see Dr. Krishna in July 2019 at. At that time she was complaining of diffuse pain since the chemotherapy but no significant changes. She had mammography in August that showed a questionable abnormality that was not confirmed on additional left breast images on September 25. She comes today for a follow-up visit. She notes increasingly severe pain in her lower extremities. She describes pain in the backs of both thighs and occasionally into her calves. It does not really go into her back much. It is present at rest and especially when she gets up from sitting or riding in the car 1st gets up in the morning. It has some better when she gets up and walks around and she states that she feels generally stiff when she 1st gets up. However the pain does not go completely away at any time it has. It is constant. It wakes her up at night. It has been getting steadily worse over the last 5-6 months and is now reached a point where she has a lot of trouble getting around as a consequence of the pain. There is no associated numbness, tingling, weakness, balance issues, headaches, or visual complaints. She has not had any issues with coordination. She denies other pain, bleeding, fever, chills, nausea, vomiting, cough or shortness of breath. All other systems are negative. Past medical history 1. She has had breast cancer surgery and bilateral cataract extractions with no other operation 2. Her daughter had colon cancer. Her of colon cancer. There is no other family history of malignancy. 3. 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 She lives alone. She is not a smoker or drinker. She is accompanied today by a good friend 4. She denies high blood pressure, diabetes, rheumatic fever, tuberculosis, heart attacks, strokes, stomach ulcers or pneumonia. She has had no other kind of cancer 5. Ibuprofen is listed as allergy but she denies that on questioning. 6. Her only current medication is hydrocodone which she takes on a as needed basis - Patient Self-Reported Symptoms SR Musculoskeletal issues: Difficulty walking, Bone pain Home Medications and Allergies Home Medications Medication Instructions Recorded Confirmed Type hydrocodone-acetaminophen 1 tab PO Q4-6H PRN #90 tab 05/11/20 Rx Allergies Allergy/AdvReac Type Severity Reaction Status Date / Time ibuprofen [IBUPROFEN] Allergy Mild (ALEVE) Unverified 11/20/17 12:53 SNEEZE, COUGH, ITCHY THROAT Exam Vital signs: Vital Signs Temp Pulse Resp BP Pulse Ox 05/18/20 08:34 97.2 F L 80 20 136/77 95 Intake and Output 05/17/20 05/18/20 05/18/20 23:59 07:59 15:59 Other: Weight 91.2 kg Patient Weight 05/18/20 23:59 Weight 91.2 kg Narrative: She was awake, alert and oriented x3. She was in no acute distress when I 1st walked into the room. She had significant pain in the areas described above when she stood up to move over to the examination table. There was a 1 cm right supraclavicular lymph node noted laterally. There was no other lymphadenopathy in the cervical, supraclavicular or axillary regions. There were no palpable breast masses on either side and no evidence of local recurrence on the left. Lungs were clear without wheezes or rales. Breath sounds were equal throughout both lung [place]. Heart showed a regular rate and rhythm without murmur, gallop or rub. The abdomen is soft and nontender without organomegaly or masses. Paraspinous pinprick examination showed increased sensation in the region of the mid lumbar spine with increased sensitivity to the [place]. There was no evidence of peripheral neuropathy on pinprick exam. She had a an antalgic gait and pain with resisting pressure but did not appear to have any localized weakness. Reflexes were 1 trace to 1+ bilaterally and symmetric. Results - Labs Laboratory Last Values WBC 7.2 X10^3/uL (4.5-11.0) 01/12/19 06:54 RBC 4.51 X10^6/uL (4.0-5.2) 01/12/19 06:54 Hgb 14.1 g/dL (12.0-16.0) 01/12/19 06:54 Hct 41.8 % (36-46) 01/12/19 06:54 MCV 92.6 fL (80-100) 01/12/19 06:54 MCH 31.2 PG (26-34) 01/12/19 06:54 MCHC 33.7 % (30-36) 01/12/19 06:54 RDW 14.5 % (11.6-14.8) 01/12/19 06:54 Plt Count 259 X10^3/uL (150-400) 01/12/19 06:54 Neut % (Auto) 59.0 % (50-75) 01/12/19 06:54 Lymph % (Auto) 26.1 % (25-40) 01/12/19 06:54 [place] % (Auto) 12.3 % (3-14) 01/12/19 06:54 Eos % (Auto) 1.9 % (2-4) L 01/12/19 06:54 Baso % (Auto) 0.7 % (0-2) 01/12/19 06:54 Neut # (Auto) 4200 /uL (6862-2171) 01/12/19 06:54 Lymph # (Auto) 1900 /uL (9949-2576) 01/12/19 06:54 [place] # (Auto) 900 /uL (0-900) 01/12/19 06:54 Eos # (Auto) 100 /uL (0-450) 01/12/19 06:54 Baso # (Auto) 0 /uL (0-100) 01/12/19 06:54 Sodium 139 mmol/L (137-145) 01/12/19 06:54 Potassium 4.4 mmol/L (3.4-5.1) 01/12/19 06:54 Chloride 97 mmol/L (98-107) L 01/12/19 06:54 Carbon Dioxide 32 mmol/L (22-32) 01/12/19 06:54 BUN 19 mg/dL (7-17) H 01/12/19 06:54 Creatinine 0.90 mg/dL (0.52-1.04) 01/12/19 06:54 Estimated GFR > 60.0 mL/min (>60) 01/12/19 06:54 BUN/Creatinine Ratio 21.1 (6-22) 01/12/19 06:54 Glucose 107 mg/dL (80-110) 01/12/19 06:54 Calcium 9.5 mg/dL (8.4-10.2) 01/12/19 06:54 Total Bilirubin 0.6 mg/dL (0.2-1.3) 01/12/19 06:54 AST 25 IU/L (14-36) 01/12/19 06:54 ALT 15 IU/L (9-52) 01/12/19 06:54 Alkaline Phosphatase 70 U/L (38-126) 01/12/19 06:54 Total Protein 7.9 g/dL (6.3-8.2) 01/12/19 06:54 Albumin 4.4 g/dL (3.5-5.0) 01/12/19 06:54 Globulin 3.5 g/dL (1.7-4.1) 01/12/19 06:54 Albumin/Globulin Ratio 1.3 (1.0-2.8) 01/12/19 06:54 CA 27-29 23 U/mL (< 38) 01/12/19 06:54 - Imaging Additional studies: Procedures Endoscopic polypectomy of large intestine (11/26/14) Incision with removal of foreign body or device from skin and subcutaneous tissue (09/21/10) Assessment and Plan (1) History of malignant neoplasm of breast Onset Date: 03/21/11 Status: Chronic Ms. Liang has a history of HER2 positive hormone receptor negative breast cancer in 2008. There was lymphadenopathy suggesting metastatic disease at that time but she has done very well. She now has a significant and worsening pain syndrome. The fact that things are better when she is up and moving around suggest the presence of an inflammatory component to this. There is an increased sensation to pinprick in the mid lumbar spine bilaterally on paraspinous pinprick examination but no other obvious neurologic findings. She has a palpable right supraclavicular lymph node. I explained that it would be appropriate to evaluate her situation with a blood count, chemistry panel, bone scan and CT scan of the chest, abdomen and pelvis. She will have the labs done today and will get the imaging studies done in the next few days. Will plan to see her back after that is been completed and further plans will be made at that time. In the interim, she will continue with her hydrocodone. She was advised that she could use ibuprofen 200 mg every 4-6 hours as needed in addition to or in between her hydrocodone doses. Despite the fact ibuprofen is listed as an allergy in her chart, she was specifically questioned about this and denies it. She was advised to take ibuprofen with food. I personally spent 28 minutes in today's [id number] visit with greater than 50% of the time spent in counseling regarding the issues outlined above. Impression: 1. Resection of T2 N3 M 1 hormone receptor negative HER2 positive left breast cancer in 2008 with evidence of metastatic disease in mediastinal, left side supraclavicular and possibly right supraclavicular lymph nodes at that time. 2. ACTH completing 1 year of Herceptin in May of 2010 3. Post chemotherapy radiation 4. Subsequent imaging has been unrevealing 5. Severe and increasing pain syndrome with with findings suggestive of an inflammatory component Recommendations: 1. CBC and CMP today 2. CT scan of the chest, abdomen and pelvis 3. Bone scan 4. Ibuprofen and hydrocodone in the interim for pain relief 5. Return after tests to review results and formulate additional plans
[2020-05-18 10:40] LABS: Add Manual Diff / Slide Review NO; Basophils Absolute Auto 0 /uL (0-100); Basophils Percent Auto 0.4 % (0-2); Eosinophils Absolute Auto 100 /uL (0-450); Eosinophils Percent Auto 1.2 % (2-4); Hematocrit 39.9 % (36-46); Hemoglobin 13.8 g/dL (12.0-16.0); Lymphocytes Absolute Auto 1400 /uL (1100-4500); Lymphocytes Percent Auto 18.5 % (25-40); Mean Corpuscular HGB Conc 34.7 % (30-36); Mean Corpuscular Hemoglobin 32.8 PG (26-34); Mean Corpuscular Volume 94.6 fL (80-100); Monocytes Absolute Auto 900 /uL (0-900); Monocytes Percent Auto 11.4 % (3-14); Neutrophils Absolute Auto 5300 /uL (1500-7000); Neutrophils Percent Auto 68.5 % (50-75); Platelet Count 239 X10^3/uL (150-400); Red Blood Cell Count 4.21 X10^6/uL (4.0-5.2); Red Cell Distribution Width 13.6 % (11.6-14.8); White Blood Cell Count 7.7 X10^3/uL (4.5-11.0)
[2020-05-18 11:21] LABS: Alanine Aminotransferase 21 IU/L (<35); Albumin 4.4 g/dL (3.5-5.0); Albumin Globulin Ratio 1.4 (1.0-2.8); Alkaline Phosphatase 63 U/L (38-126); Aspartate Aminotransferase 28 IU/L (14-36); BUN Creatinine Ratio 36.1 (6-22); Bilirubin Total 0.4 mg/dL (0.2-1.3); Blood Urea Nitrogen 26 mg/dL (7-17); Calcium 9.3 mg/dL (8.4-10.2); Carbon Dioxide 31 mmol/L (22-32); Chloride 101 mmol/L (98-107); Estimated Glomerular Filt Rate > 60.0 mL/min (>60); Globulin 3.1 g/dL (1.7-4.1); Glucose 129 mg/dL (80-110); HEMOLYSIS 24 (0-50); Potassium 4.7 mmol/L (3.4-5.1); Sodium 138 mmol/L (137-145); Total Protein 7.5 g/dL (6.3-8.2)
[2020-05-25 13:47] VITALS: BP 137/85; PULSE 82; RESP 18; TEMP 36.4; O2SAT 98
--- NOTE | 2020-05-25 14:49 | ONC.PN ---
PN -Subjective Interval history: Diagnosis: Breast cancer, T2 N3 M1, ERPR negative, her 2 positive Ms. britton presents today for follow-up of breast cancer. She is now 80 years old. In 2008 she had resection of a T2 N3a M1 hormone receptor negative HER2 positive left breast cancer. PET scan was positive in mediastinal, left supraclavicular and possibly right supraclavicular lymph nodes. She was treated with ACTH and completed a year of Herceptin in May of 2010. She had post chemotherapy radiation. Subsequent imaging studies have been negative. She was last in to see Dr. Krishna in July 2019 at. At that time she was complaining of diffuse pain since the chemotherapy but no significant changes. She had mammography in August that showed a questionable abnormality that was not confirmed on additional left breast images on September 25. She notes increasingly severe pain in her lower extremities. She describes pain in the backs of both thighs and occasionally into her calves. It does not really go into her back much. It is present at rest and especially when she gets up from sitting or riding in the car 1st gets up in the morning. It has some better when she gets up and walks around and she states that she feels generally stiff when she 1st gets up. However the pain does not go completely away at any time it has. It is constant. It wakes her up at night. It has been getting steadily worse over the last 5-6 months and is now reached a point where she has a lot of trouble getting around as a consequence of the pain. There is no associated numbness, tingling, weakness, balance issues, headaches, or visual complaints. She has not had any issues with coordination. She denies other pain, bleeding, fever, chills, nausea, vomiting, cough or shortness of breath. All other systems are negative. She had testing done and comes in today to review results. Past medical history 1. She has had breast cancer surgery and bilateral cataract extractions with no other operation 2. Her daughter had colon cancer. Her of colon cancer. There is no other family history of malignancy. 3. 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 She lives alone. She is not a smoker or drinker. She is accompanied today by a good friend 4. She denies high blood pressure, diabetes, rheumatic fever, tuberculosis, heart attacks, strokes, stomach ulcers or pneumonia. She has had no other kind of cancer 5. Ibuprofen is listed as allergy but she denies that on questioning. 6. Her only current medication is hydrocodone which she takes on a as needed basis - Patient Self-Reported Symptoms SR Musculoskeletal issues: Back or neck pain, Difficulty walking Home Medications and Allergies Home Medications Medication Instructions Recorded Confirmed Type hydrocodone-acetaminophen 1 tab PO Q4-6H PRN #90 tab 05/11/20 Rx Allergies Allergy/AdvReac Type Severity Reaction Status Date / Time ibuprofen [IBUPROFEN] Allergy Mild (ALEVE) Unverified 11/20/17 12:53 SNEEZE, COUGH, ITCHY THROAT Exam Vital signs: Vital Signs Temp Pulse Resp BP Pulse Ox 05/25/20 13:47 97.6 F 82 18 137/85 98 Intake and Output 05/24/20 05/25/20 05/25/20 23:59 07:59 15:59 Other: Weight 90.2 kg Patient Weight 05/25/20 23:59 Weight 90.2 kg Narrative: She was awake, alert and oriented x3. She was in no acute distress. Results - Labs Laboratory Last Values WBC 7.7 X10^3/uL (4.5-11.0) 05/18/20 10:07 RBC 4.21 X10^6/uL (4.0-5.2) 05/18/20 10:07 Hgb 13.8 g/dL (12.0-16.0) 05/18/20 10:07 Hct 39.9 % (36-46) 05/18/20 10:07 MCV 94.6 fL (80-100) 05/18/20 10:07 MCH 32.8 PG (26-34) 05/18/20 10:07 MCHC 34.7 % (30-36) 05/18/20 10:07 RDW 13.6 % (11.6-14.8) 05/18/20 10:07 Plt Count 239 X10^3/uL (150-400) 05/18/20 10:07 Neut % (Auto) 68.5 % (50-75) 05/18/20 10:07 Lymph % (Auto) 18.5 % (25-40) L 05/18/20 10:07 [place]upe % (Auto) 11.4 % (3-14) 05/18/20 10:07 Eos % (Auto) 1.2 % (2-4) L 05/18/20 10:07 Baso % (Auto) 0.4 % (0-2) 05/18/20 10:07 Neut # (Auto) 5300 /uL (1294-9982) 05/18/20 10:07 Lymph # (Auto) 1400 /uL (1085-2228) 05/18/20 10:07 [place]adalupe # (Auto) 900 /uL (0-900) 05/18/20 10:07 Eos # (Auto) 100 /uL (0-450) 05/18/20 10:07 Baso # (Auto) 0 /uL (0-100) 05/18/20 10:07 Sodium 138 mmol/L (137-145) 05/18/20 10:07 Potassium 4.7 mmol/L (3.4-5.1) 05/18/20 10:07 Chloride 101 mmol/L (98-107) 05/18/20 10:07 Carbon Dioxide 31 mmol/L (22-32) 05/18/20 10:07 BUN 26 mg/dL (7-17) H 05/18/20 10:07 Creatinine 0.72 mg/dL (0.52-1.04) 05/18/20 10:07 Estimated GFR > 60.0 mL/min (>60) 05/18/20 10:07 BUN/Creatinine Ratio 36.1 (6-22) H 05/18/20 10:07 Glucose 129 mg/dL (80-110) H 05/18/20 10:07 Calcium 9.3 mg/dL (8.4-10.2) 05/18/20 10:07 Total Bilirubin 0.4 mg/dL (0.2-1.3) 05/18/20 10:07 AST 28 IU/L (14-36) 05/18/20 10:07 ALT 21 IU/L (<35) 05/18/20 10:07 Alkaline Phosphatase 63 U/L (38-126) 05/18/20 10:07 Total Protein 7.5 g/dL (6.3-8.2) 05/18/20 10:07 Albumin 4.4 g/dL (3.5-5.0) 05/18/20 10:07 Globulin 3.1 g/dL (1.7-4.1) 05/18/20 10:07 Albumin/Globulin Ratio 1.4 (1.0-2.8) 05/18/20 10:07 CA 27-29 23 U/mL (< 38) 01/12/19 06:54 - Imaging Additional studies: Procedures Endoscopic polypectomy of large intestine (11/26/14) Incision with removal of foreign body or device from skin and subcutaneous tissue (09/21/10) Assessment and Plan (1) History of malignant neoplasm of breast Onset Date: 03/21/11 Status: Chronic Ms. Liang has a history of HER2 positive hormone receptor negative breast cancer in 2008. There was lymphadenopathy suggesting metastatic disease at that time but she has done very well. She now has a significant and worsening pain syndrome. The fact that things are better when she is up and moving around suggest the presence of an inflammatory component to this. Testing directed at recurrent breast cancer including CBC, comprehensive metabolic panel, bone scan, and CT scan of the chest, abdomen and pelvis are negative. Accordingly, I do not think her symptoms represent metastatic breast cancer. In addition, hormone receptor negative HER2 positive breast cancer would typically relapse within 5 years of initial diagnosis and she is well past that estefania. We discussed the fact that there are multiple other conditions that could cause her symptoms. Polymyalgia rheumatica could potentially present in this fashion. I suggested that she see her primary physician for further workup. She stated that she does not have a primary care doctor right now and I will refer her to Dr. Stalin Odroñez for Internal Medicine evaluation. She still needs periodic follow-up for her breast cancer. A return appointment will be scheduled in 1 year. She will be due for a mammogram in August of 2020 which was ordered. I would be happy to see her any time if I could be of assistance in her care. Impression: 1. Resection of T2 N3 M 1 hormone receptor negative HER2 positive left breast cancer in 2008 with evidence of metastatic disease in mediastinal, left side supraclavicular and possibly right supraclavicular lymph nodes at that time. 2. ACTH completing 1 year of Herceptin in May of 2010 3. Post chemotherapy radiation 4. Subsequent imaging has been unrevealing 5. Severe and increasing pain syndrome with with findings suggestive of an inflammatory component 6. No evidence of recurrent breast cancer on labs, bone scan or CT scan Recommendations: 1. Patient and her son were counseled that we find no evidence of recurrent breast cancer to explain her symptoms 2. Internal medicine referral to Dr. Stalin Ordoñez 3. Mammogram was ordered for August of 2020, a 1 year follow-up screening exam 4. Follow up here in 1 year with labs prior 5. Would be happy to see her any time if we could be of assistance in her care.
--- NOTE | 2020-05-25 16:43 | ONC.SCHED ---
Faxed referral to Dr. Ordoñez @ [facility].
--- NOTE | 2020-06-06 15:16 | PC.NURSE ---
Pt is c/o 9/10 pain that gets better with medication. Pt has more pain in the AM. requesting better pain management. preferred pharmacy is [facility].
--- NOTE | 2020-06-07 13:04 | PC.NURSE ---
PAIN: PATIENT HAS NOT YET SEEN DR COBIAN NEW PCP AND TO EVALUATE PAIN SITUATION. SHE WAS TOLD HE IS NOT TAKING NEW PATIENTS. SHE HAS ONLY BEEN TAKING 2-3 VICODIN/DAY AND WAS INSTRUCTED TO START TAKING 4/DAY EVENLY SPACED PER DR. MARIE'S ORDER TO SEE IF THAT HELPS.
--- NOTE | 2020-06-07 15:09 | PC.NURSE ---
[facility] LAB TO BE DONE IN NEXT WEEK/PATIENT TO MAKE APPT WITH ANY PROVIDER AT DR COBIAN'S OFFICE: THIS INSTRUCTION GIVEN BY DR MARIE AND COMMUNICATED TO PATIENT PER TELEPHONE MESSAGE.
--- NOTE | 2020-06-23 14:17 | CM.MNRNOTE ---
PAIN: PATIENT REQUESTED REFILL ON VICODIN. SHE STATES HER INCREASE TO 4 A DAY HAS HELPED BUT PAIN STILL OFTEN SEVERE. THIS NURSE TOLD HER THAT PER SCRIPT SHE CAN TAKE UP TO EVERY 4 HOURS OR 6/DAY. DR IVY INFORMED.
--- NOTE | 2020-06-28 13:48 | ONC.MSW ---
Description: T/C re: obtaining a PCP Activity: Dr. Yo requested assistance from this RETAIL PERSONAL BANKER to assist pt with obtaining a PCP. He has been filling her pain medications for the last 4-refills, however he is no longer able to do that, and is requesting that pt have her own PCP continue this. She had initially been referred to Dr. Ordoñez, however he is no longer accepting new patients. RETAIL PERSONAL BANKER called pt, explained the situation, and told her that there are 3-other providers taking patients in that clinic. Provided contact info and provider info for Dr. Gladys Holly. Pt will f/u and get established. No further needs indicated at this time.
--- NOTE | 2020-07-26 09:08 | ONC.MSW ---
Description: Pain Meds/Need for PCP Activity: Dr. Yo requested that this OFFICE HELPER CLERICAL call pt and again explain that he is no longer going to prescribe pain medication for her, and that she needs to obtain a PCP to continue prescribing. OFFICE HELPER CLERICAL called pt's son and explained that we have already told her this, however she is again requesting pain medication. He agreed to fill 25, however that is his final fill. Apparently, pt did call and try to get set-up with Dr. Ordoñez, however he is not taking patients, and she never asked about other providers who are. OFFICE HELPER CLERICAL explained that Dr. Gladys Holly in the same office is taking new patients. Pt's son will call pt and explain to her, so that she can get established as soon as possible.
== END ==
PROVIDERS: Internal Medicine; Nurse Practitioner Gerontology; Visit Provider Internal Medicine Medical Oncology
DX: Z08 Encounter for follow-up examination after completed treatment for malignant neoplasm (principal); Z85.3 Personal history of malignant neoplasm of breast; M79.652 Pain in left thigh; M79.651 Pain in right thigh; M79.662 Pain in left lower leg; M79.661 Pain in right lower leg
CPT/HCPCS: 36415; 80053; 85025; 86300; 99214

== ENCOUNTER → 2020-07-02 08:12 | Outpatient (CLI) | payer MEDICARE, OTHER, SELFPAY ==
[2020-07-02 09:09] LABS: Erythrocyte Sedimentation Rate 23 MM/HR (0-20)
== END ==
PROVIDERS: Referring Provider Internal Medicine; Visit Provider Internal Medicine
DX: Z85.3 Personal history of malignant neoplasm of breast (principal)
CPT/HCPCS: 36415; 85651

== ENCOUNTER → 2022-06-29 09:46 | Outpatient (CLI) | payer MEDICARE, OTHER, SELFPAY ==
[2022-06-29 10:48] LABS: Add Manual Diff / Slide Review NO; Basophils Absolute Auto 0 /uL (0-100); Basophils Percent Auto 0.6 % (0-2); Eosinophils Absolute Auto 0 /uL (0-450); Eosinophils Percent Auto 0.9 % (2-4); Hematocrit 41.6 % (36-46); Hemoglobin 13.8 g/dL (12.0-16.0); Lymphocytes Absolute Auto 1700 /uL (1100-4500); Lymphocytes Percent Auto 28.8 % (25-40); Mean Corpuscular HGB Conc 33.2 % (30-36); Mean Corpuscular Hemoglobin 31.8 PG (26-34); Mean Corpuscular Volume 95.9 fL (80-100); Monocytes Absolute Auto 700 /uL (0-900); Monocytes Percent Auto 12.4 % (3-14); Neutrophils Absolute Auto 3300 /uL (1500-7000); Neutrophils Percent Auto 57.3 % (50-75); Platelet Count 242 X10^3/uL (150-400); Red Blood Cell Count 4.34 X10^6/uL (4.0-5.2); Red Cell Distribution Width 13.4 % (11.6-14.8); White Blood Cell Count 5.8 X10^3/uL (4.5-11.0)
[2022-06-29 10:55] LABS: Hemoglobin A1C% w Est Avg Glu 6.1 % (4.0-6.0)
[2022-06-29 11:30] LABS: Alanine Aminotransferase 18 IU/L (<35); Albumin 4.4 g/dL (3.5-5.0); Albumin Globulin Ratio 1.2 (1.0-2.8); Alkaline Phosphatase 76 U/L (38-126); Aspartate Aminotransferase 24 IU/L (14-36); BUN Creatinine Ratio 30.4 (6-22); Bilirubin Total 0.7 mg/dL (0.2-1.3); Blood Urea Nitrogen 21 mg/dL (7-17); Calcium 9.3 mg/dL (8.4-10.2); Carbon Dioxide 30 mmol/L (22-32); Chloride 101 mmol/L (98-107); Cholesterol 306 mg/dL (140-199); Estimated Glomerular Filt Rate > 60 mL/min (>60); Globulin 3.7 g/dL (1.7-4.1); Glucose 104 mg/dL (80-110); HDL Cholesterol 47 mg/dL (40-60); HEMOLYSIS < 15 (0-50); LDL Cholesterol Calculated 219 mg/dL (<100); Potassium 3.9 mmol/L (3.4-5.1); Sodium 141 mmol/L (137-145); Total Protein 8.1 g/dL (6.3-8.2); Triglycerides 199 mg/dL (35-150)
[2022-06-29 11:32] LABS: Vitamin D 25 Hydroxy (D3) 23.5 ng/mL (30.0-100.0)
[2022-06-29 12:18] LABS: Free T4, Direct Thyroxine 0.84 ng/dL (0.78-2.19)
[2022-06-29 12:30] LABS: Folate > 20.0 ng/mL (2.76-20.0); Vitamin B12 612 pg/mL (239-931)
== END ==
PROVIDERS: PCP Family Medicine; Referring Provider Family Medicine; Visit Provider Family Medicine
DX: Z13.820 Encounter for screening for osteoporosis (principal); M85.852 Other specified disorders of bone density and structure, left thigh; Z78.0 Asymptomatic menopausal state; M53.3 Sacrococcygeal disorders, not elsewhere classified; R03.0 Elevated blood-pressure reading, without diagnosis of hypertension; R73.01 Impaired fasting glucose; Z13.29 Encounter for screening for other suspected endocrine disorder; E56.9 Vitamin deficiency, unspecified; G89.4 Chronic pain syndrome; Z91.89 Other specified personal risk factors, not elsewhere classified; Z79.899 Other long term (current) drug therapy; Z13.220 Encounter for screening for lipoid disorders; Z90.710 Acquired absence of both cervix and uterus
CPT/HCPCS: 36415; 77080; 80053; 80061; 82306; 82607; 82746; 83036; 84439; 84443; 85025